=== PATIENT | male | born 1965 | race Caucasian/White ===

== ENCOUNTER 2020-04-20 05:29 | Observation (INO) | payer OTHER ==
[2020-04-17 09:12] VITALS: BMI 48.8
[2020-04-20] MEDS ORDERED: Non-Formulary Medication 1 EACH PO PRN (09:57)
[2020-04-20] MEDS ORDERED: PACU-Morphine 4MG/ML VIAL SLOW IVP PRN (10:00)
[2020-04-20] MEDS ORDERED: Morphine Sulfate 2 MG/ML SYRINGE SLOW IVP PRN (10:00)
[2020-04-20] MEDS ORDERED: Meperidine HCl/PF 25 MG/ML VIAL IV PRN (10:00)
[2020-04-20] MEDS ORDERED: Ondansetron HCl/PF 4 MG/2 ML Vial IVP PRN (10:00)
[2020-04-20] MEDS ORDERED: HYDROmorphone 2 MG/ML VIAL SLOW IVP PRN (10:00)
[2020-04-20] MEDS ORDERED: Promethazine HCl 25 MG/ML VIAL IM/IV PRN (10:00)
[2020-04-20] MEDS ORDERED: Ondansetron PF 4 MG/2 ML Vial SLOW IVP PRN (10:19)
[2020-04-20] MEDS ORDERED: Morphine 2 MG/ML VIAL SLOW IVP PRN (10:30)
[2020-04-20] MEDS ORDERED: Milk Of Magnesia 30 ML UDCUP PO PRN (10:30)
[2020-04-20] MEDS ORDERED: Promethazine HCl 12.5 MG SUPP PR PRN (10:30)
[2020-04-20] MEDS ORDERED: diphenhydrAMINE 25 MG CAP PO PRN (10:30)
[2020-04-20] MEDS ORDERED: Promethazine 25 MG TAB PO PRN (10:30)
[2020-04-20] MEDS ORDERED: Mag-Al 1200 mg/1200 mg/30 ML UDCUP PO PRN (10:30)
[2020-04-20] MEDS ORDERED: diphenhydrAMINE 50 MG/ML VIAL IVP PRN (10:30)
[2020-04-20] MEDS ORDERED: Morphine 4 MG/ML VIAL SLOW IVP PRN (10:30)
[2020-04-20] MEDS ORDERED: Acetaminophen/Codeine 30-300mg Tablet PO PRN (10:30)
[2020-04-20] MEDS ORDERED: Promethazine HCl 25 MG/ML VIAL IM PRN (10:30)
[2020-04-20] MEDS ORDERED: traMADol HCl 50 MG TAB PO PRN ×2 (10:30)
--- NOTE | 2020-04-20 12:13 | OP ---
DATE OF PROCEDURE: 04/20/2020 BANK VAULT CLERK: Joshua. PROCEDURES PERFORMED: L4-L5 laminectomy; posterolateral arthrodesis, pedicle screw instrumentation, demineralized bone matrix, local morselized autograft at L4-L5. DESCRIPTION OF PROCEDURE: The patient was brought to the operating room and intubated. He was rolled in a prone position on gel-filled chest rolls. Previous incision was reopened and L4-L5 area was exposed. He had previous scar in the region of right L4-L5. We performed L4-L5 laminectomy bilaterally. A complete decompression was achieved. On the right at L4-L5, there was a substantial rent in the dura and dura in this region of the prior surgery. The nerves were protected with Gelfoam and ultimately DuraSeal fibrin sealant was laid over this. After complete decompression was secured, pedicle screws were placed at right L4 and right L5 using lateral fluoroscopic guidance and the position was confirmed by x-ray. The gudelia was secured between the screws, connected by nuts, which were final tightened. A combination of demineralized bone matrix and local morselized autograft was laid over the lamina and posterolateral surfaces for the purpose of arthrodesis. Vancomycin powder was applied and the wound was then closed in anatomic layers. Job ID: [id number]
[2020-04-20] MEDS: Acetaminophen/Codeine 30-300mg Tablet PO PRN ×3 (12:45→18:33)
[2020-04-20] MEDS: tiZANidine HCl 4 MG TAB PO PRN ×2 (12:45→18:27)
[2020-04-20] MEDS: Sodium Chloride 0.9% 1,000 ML IV SCH ×2 (14:51→22:55)
[2020-04-20] MEDS: CEFAZOLIN 2 GM in Premix Bag 1 BAG IVPB SCH ×3 (14:52→21:00)
[2020-04-20] MEDS ORDERED: Tamsulosin HCl 0.4 MG CAP PO SCH (15:00)
[2020-04-20] MEDS ORDERED: HYDROcodone/Acetaminophen 7.5/325 mg Tablet PO PRN (20:17)
[2020-04-20] MEDS ORDERED: Baclofen 10 MG TAB PO SCH (21:00)
[2020-04-20] MEDS ORDERED: Simvastatin 10 MG TAB PO SCH (21:00)
[2020-04-20] MEDS ORDERED: Losartan/Hydrochlorothiazide 100 mg/25 mg Tablet PO SCH (21:00)
[2020-04-21] MEDS: HYDROcodone/Acetaminophen 7.5/325 mg Tablet PO PRN ×3 (02:36→10:25)
[2020-04-21] MEDS ORDERED: Tamsulosin HCl 0.4 MG CAP PO SCH (06:00)
[2020-04-21] MEDS ORDERED: Levothyroxine Sodium 100 MCG TAB PO SCH (06:00)
[2020-04-21 08:00] VITALS: TEMP 98.3
[2020-04-21] MEDS: tiZANidine HCl 4 MG TAB PO PRN (10:25)
--- NOTE | 2020-04-21 10:30 | DIS ---
DATE OF ADMISSION: 04/20/2020 DATE OF DISCHARGE: 04/21/2020 The patient is a 54-year-old male, recently evaluated in our office for progressive back and leg pain. 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 The patient underwent L4-L5 decompression and fusion on 04/20/2020. Following the surgery, he was transitioned to the [facility]. His pain was well controlled with p.o. medications, he is tolerating a regular diet, and he is voiding appropriately. He did have a CSF leak intraoperatively, but there have been no incisional issues. He is not having any headache or CSF hypertension symptoms. We will go ahead and dismiss the patient to home. I will follow up with the patient in 2 weeks. Job ID: [id number]
[2020-04-21] MEDS: Sodium Chloride 0.9% 1,000 ML IV SCH (11:38)
[2020-04-21 12:16] VITALS: BP 114/62
[2020-04-21] MEDS: Acetaminophen/Codeine 30-300mg Tablet PO PRN (13:01)
== END 2020-04-21 13:30 | disposition home or self-care (01) ==
LOC: SDC 05:29 → SJJU 09:35
PROVIDERS: ADMIT Neurological Surgery; ATTEND Neurological Surgery
PROC: 0SG0071 Fusion of Lumbar Vertebral Joint with Autologous Tissue Substitute, Posterior Approach, Posterior Column, Open Approach (ICD-10-PCS; principal; 2020-04-20)
DX: M48.062 Spinal stenosis, lumbar region with neurogenic claudication (principal); I10 Essential (primary) hypertension; E78.5 Hyperlipidemia, unspecified; F17.220 Nicotine dependence, chewing tobacco, uncomplicated; Z79.899 Other long term (current) drug therapy
CPT/HCPCS: 76000; 96365; C1713; C1768; G0378; J0690

== ENCOUNTER 2020-05-05 09:42 | Outpatient (CLI) | payer OTHER ==
--- NOTE | 2020-05-05 10:02 | RAD ---
EXAM: XR Lumbar Spine 2 Or 3 View PROVIDED CLINICAL HISTORY: Follow-up surgery COMPARISON: None FINDINGS: Postoperative changes lower lumbar spine are noted with unilateral right-sided pedicular screws with posterior rods transfixing the L4-5 level. Laminectomy defect is present at the L4-5 level. No hardware complication is seen. Scattered degenerative changes with prominent osteophytes throughout the lumbar spine and lower thora cic spine are seen. There is loss of intervertebral disc height at all levels of the lumbar spine greatest at the L5-S1 level. There is slight retrolisthesis of L2 on L3. The vertebral body heights a re within normal limits. IMPRESSION: 1. Degenerative and postoperative changes of the lumbar spine. 2. Slight retrolisthesis of L2 on L3.
== END 2020-05-05 09:43 | disposition home or self-care (01) ==
LOC: TBSIIMAG 09:42
PROVIDERS: ATTEND Neurological Surgery
DX: Z47.89 Encounter for other orthopedic aftercare (principal); M47.816 Spondylosis without myelopathy or radiculopathy, lumbar region; M43.16 Spondylolisthesis, lumbar region; Z98.890 Other specified postprocedural states
CPT/HCPCS: 72100